=== PATIENT | female | born 1985 ===

== ENCOUNTER 2020-07-03 17:50 | Emergency (ER) | payer SELFPAY ==
[2020-07-03] MEDS ORDERED: ACETAMINOPHEN 325 MG TABLET PO ONE (18:58)
[2020-07-03] MEDS ORDERED: IBUPROFEN 600 MG TABLET PO ONE (18:58)
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
--- NOTE | 2020-07-03 20:41 | RADIOLOGY REPORT (SQ) ---
EXAM: FOREARM RIGHT (accession [id number]), ELBOW RIGHT OVER 2 VIEWS (accession [id number]) CLINICAL INDICATION: 34-year-old female with RIGHT arm pain. TECHNIQUE: Three views of the RIGHT elbow were obtained in AP, lateral and oblique projections. Two views of the RIGHT forearm were obtained in AP and lateral projection. COMPARISON: None. FINDINGS: Tiny lucency is identified at the level of the lateral radial head raising the possibility of nondisplaced fracture. Correlation with radial head imaging and point tenderness may be considered. The joint spaces are preserved. No soft tissue abnormalities are seen. IMPRESSION: 1. Equivocal findings for tiny lucency present at the level of the lateral radial head raising the possibility for age indeterminate fracture. Correlation with radial head imaging and point tenderness may be considered.
--- NOTE | 2020-07-03 20:41 | RADIOLOGY REPORT (SQ) ---
EXAM: FOREARM RIGHT (accession [id number]), ELBOW RIGHT OVER 2 VIEWS (accession [id number]) CLINICAL INDICATION: 34-year-old female with RIGHT arm pain. TECHNIQUE: Three views of the RIGHT elbow were obtained in AP, lateral and oblique projections. Two views of the RIGHT forearm were obtained in AP and lateral projection. COMPARISON: None. FINDINGS: Tiny lucency is identified at the level of the lateral radial head raising the possibility of nondisplaced fracture. Correlation with radial head imaging and point tenderness may be considered. The joint spaces are preserved. No soft tissue abnormalities are seen. IMPRESSION: 1. Equivocal findings for tiny lucency present at the level of the lateral radial head raising the possibility for age indeterminate fracture. Correlation with radial head imaging and point tenderness may be considered.
[2020-07-03 21:30] VITALS: BP 148/90
== END 2020-07-03 21:55 | disposition home or self-care (01) ==
LOC: ER 17:50
DX: M79.631 Pain in right forearm (principal); V00.848A Other accident with standing micro-mobility pedestrian conveyance, initial encounter
CPT/HCPCS: 99283